=== PATIENT | male | born 1970 | race Caucasian/White ===

== ENCOUNTER 2023-08-24 20:30 | Emergency (ER) | payer OTHER ==
[~2023-08-24] VITALS: Ht 182.9 cm; Wt 97.5 kg
[2023-08-24 21:32] VITALS: BP 117/76; PULSE 88; RESP 16; TEMP 97.4; O2SAT 98
[2023-08-24 22:07] LABS: BILIRUBIN,URINE NEGATIVE (NEGATIVE); BLOOD, URINE 3+ (NEGATIVE); COLOR,URINE YELLOW (YELLOW); LEUKOCYTE ESTERASE ,URINE 1+ (NEGATIVE); NITRITE, URINE NEGATIVE (NEGATIVE); PROTEIN,URINE 3+ (NEGATIVE); UGLUCOSE 1+ (NEGATIVE); UROBILINOGEN,URINE 0.2 EU/dL (0.2 - 1)
[2023-08-24 22:08] LABS: APPEARANCE,URINE SLIGHTLY CLOUDY (CLEAR)
[2023-08-24 22:11] LABS: BACTERIA,URINE 2+ /HPF (None Seen); MUCUS,URINE None Seen /LPF (None Seen); RBC,URINE 11-20 (MOD) /HPF (0-5); SQUAMOUS EPITHELIAL CELL,UR 4-10 (MOD) /LPF (0-3 (FEW))
[2023-08-24] MEDS ORDERED: CEFP200T20 PO (22:59)
[2023-08-24] MEDS ORDERED: PYR100 PO (22:59)
[2023-08-24 23:11] VITALS: BP 117/76; PULSE 88; RESP 16; TEMP 97.4; O2SAT 98
== END 2023-08-24 23:11 | disposition home or self-care (01) ==
LOC: MED 20:30
DX: N39.0 Urinary tract infection, site not specified (principal); N40.1 Benign prostatic hyperplasia with lower urinary tract symptoms; Z79.899 Other long term (current) drug therapy
CPT/HCPCS: 81001; 87086; 99284

== ENCOUNTER 2023-10-16 13:56 | Emergency (ER) | payer OTHER ==
[~2023-10-16] VITALS: Ht 182.9 cm; Wt 96.2 kg
[~2023-10-16 13:56] MED LIST: CEFP200T20 PO; PYR100 PO
[2023-10-16 14:10] VITALS: BP 103/71; PULSE 100; RESP 20; TEMP 98.5; O2SAT 99
== END 2023-10-16 14:51 | disposition home or self-care (01) ==
LOC: MED 13:56
DX: R31.9 Hematuria, unspecified (principal); E11.9 Type 2 diabetes mellitus without complications; Z79.899 Other long term (current) drug therapy
CPT/HCPCS: 99281

== ENCOUNTER 2023-11-20 14:03 | Inpatient (IN) | payer OTHER ==
[~2023-11-20] VITALS: Ht 182.9 cm; Wt 83.9 kg
[2023-11-20 14:30] VITALS: BP 174/87; PULSE 114; RESP 18; TEMP 100.8; O2SAT 98
[2023-11-20 15:15] VITALS: O2SAT 98
[2023-11-20] MEDS: NACL 0.9% 1,000 ML IV ONE (16:00)
[2023-11-20] MEDS: ACETAMINOPHEN 325 MG TAB PO ONE (16:06)
[2023-11-20 16:07] LABS: BASOPHILS # (AUTO) 0.1 K/uL (0.00-0.22); BASOPHILS % (AUTO) 0.4 % (0.0-2.0); HEMATOCRIT 29.1 % (36-52); HEMOGLOBIN 9.4 g/dL (12.0-18.0); LYMPHOCYTES % (AUTO) 5.1 % (20.5-51.1); MEAN CORPUSCULAR HEMOGLOBIN 28 pg (27-31); MEAN CORPUSCULAR HGB CONC 32 g/dL (33-37); MEAN CORPUSCULAR VOLUME 85.5 fL (80-94); MONOCYTES # (AUTO) 0.9 K/uL (0.8-1.0); MONOCYTES % (AUTO) 4.6 % (1.7-9.3); NEUTROPHILS # (AUTO) 18.3 K/uL (1.8-7.7); NEUTROPHILS % (AUTO) 89.9 % (42.2-75.2); PLATELET COUNT (AUTO) 415 K/uL (140-450); RED CELL DISTRIBUTION WIDTH 13.6 % (11.6-13.7); WHITE BLOOD COUNT (AUTO) 20.3 K/uL (4.8-10.8)
[2023-11-20 16:25] LABS: INR 1.14 (0.8-1.2); PARTIAL THROMBOPLASTIN TIME 32.9 secs (22-35.6); PROTHROMBIN TIME 11.9 secs (10.8-13.4)
[2023-11-20] MEDS ORDERED: VANCOMYCIN 1,000 MG VIAL ONE (16:30)
[2023-11-20] MEDS ORDERED: PIPERACILLIN/TAZOBACTAM 3.375 GM VIAL IV ONE (16:31)
[2023-11-20 16:37] LABS: ALANINE AMINOTRANSFERASE 35 U/L (12-78); ALBUMIN 2.2 g/dL (3.4-5.0); ALKALINE PHOSPHATASE 519 U/L (50-136); ANION GAP 9.7 (8-16); ASPARTATE AMINOTRANSFERASE 34 U/L (15-37); BILIRUBIN,DIRECT 0.5 mg/dL (0.0-0.3); CALCIUM 8.5 mg/dL (8.5-10.1); CARBON DIOXIDE 31.5 mmol/L (21-32); CREATININE 1.2 mg/dL (0.6-1.3); POTASSIUM 4.2 mmol/L (3.5-5.1); TOTAL BILIRUBIN 1.1 mg/dL (0.0-1.0); TOTAL PROTEIN, SERUM 7.7 g/dL (6.4-8.2)
[2023-11-20] MEDS: NACL 0.9% 1,500 ML IV ONE (16:43)
[2023-11-20] MEDS: PIPERACILLIN/TAZOBACTAM 3.375 GM in DEXTROSE 5% 50 ML IV ONE (16:44)
[2023-11-20 16:45] LABS: LACTIC ACID 1.4 mmol/L (0.4-2.0)
[2023-11-20 16:53] LABS: APPEARANCE,URINE SLIGHTLY HAZY (CLEAR); BILIRUBIN,URINE NEGATIVE (NEGATIVE); BLOOD, URINE 3+ (NEGATIVE); COLOR,URINE YELLOW (YELLOW); LEUKOCYTE ESTERASE ,URINE TRACE (NEGATIVE); NITRITE, URINE NEGATIVE (NEGATIVE); PROTEIN,URINE 2+ (NEGATIVE); UGLUCOSE 3+ (NEGATIVE)
[2023-11-20 16:54] LABS: RBC,URINE 20-50 /HPF (0-5)
[2023-11-20 16:55] LABS: BACTERIA,URINE 1+ /HPF (None Seen); MUCUS,URINE None Seen /LPF (None Seen); SQUAMOUS EPITHELIAL CELL,UR 0-3 (FEW) /LPF (0-3 (FEW)); WBC,URINE 0-5 /HPF (0-5)
[2023-11-20] MEDS ORDERED: DEXTROSE 50% 50 ML SYR IVP PRN (17:20)
[2023-11-20] MEDS ORDERED: HYDROcodone/APAP 5/325 MG 1 TAB TAB PO PRN (17:20)
[2023-11-20] MEDS ORDERED: VANCOMYCIN PER PHARMACY MC PRN (17:20)
[2023-11-20] MEDS ORDERED: ONDANSETRON 4 MG/2 ML VIAL IVP PRN (17:20)
[2023-11-20] MEDS ORDERED: MORPHINE SULFATE 4 MG/ML SYR IVP PRN (17:20)
[2023-11-20] MEDS ORDERED: ACETAMINOPHEN 325 MG TAB PO PRN (17:20)
[2023-11-20] MEDS: VANCOMYCIN 1,000 MG in DEXTROSE 5% 250 ML IV ONE (17:21)
[2023-11-20] MEDS: NACL 0.9% 1,000 ML IV SCH (17:44)
[2023-11-20 18:41] VITALS: O2SAT 100
[2023-11-20] MEDS: BLOOD GLUCOSE MONITORING 1 DEV DEV FS SCH (21:00)
[2023-11-20] MEDS: PIPERACILLIN/TAZOBACTAM 3.375 GM in DEXTROSE 5% 50 ML IV SCH (21:00)
[2023-11-20 21:30] VITALS: BP 142/76; PULSE 94; RESP 18; TEMP 97.6; O2SAT 97
[2023-11-20] MEDS: PIPERACILLIN/TAZOBACTAM 3.375 GM VIAL IV ONE (21:56)
[2023-11-20] MEDS: INSULIN LISPRO SLIDING SCALE 100 UNITS/ML VIAL SUBQ PRN (22:17)
[2023-11-21] VITALS: BP 138/74; PULSE 72; RESP 16; TEMP 97.2; O2SAT 96
[2023-11-21 04:00] VITALS: BP 134/68; PULSE 86; RESP 18; TEMP 98.2; O2SAT 99
[2023-11-21] MEDS: VANCOMYCIN 1,000 MG VIAL ONE (04:36)
[2023-11-21] MEDS: VANCOMYCIN 1,000 MG in DEXTROSE 5% 250 ML IV ONE (04:37)
[2023-11-21] MEDS: PIPERACILLIN/TAZOBACTAM 3.375 GM VIAL IV ONE (05:29)
[2023-11-21 06:45] LABS: BASOPHILS # (AUTO) 0.1 K/uL (0.00-0.22); BASOPHILS % (AUTO) 0.3 % (0.0-2.0); EOSINOPHILS % (AUTO) 0.1 % (0.0-4.0); HEMATOCRIT 24.5 % (36-52); HEMOGLOBIN 8.1 g/dL (12.0-18.0); LYMPHOCYTES # (AUTO) 1.3 K/uL (2.0-11.5); LYMPHOCYTES % (AUTO) 7.1 % (20.5-51.1); MEAN CORPUSCULAR HEMOGLOBIN 28 pg (27-31); MEAN CORPUSCULAR HGB CONC 33 g/dL (33-37); MEAN CORPUSCULAR VOLUME 85.6 fL (80-94); MONOCYTES % (AUTO) 5.6 % (1.7-9.3); NEUTROPHILS # (AUTO) 16.3 K/uL (1.8-7.7); NEUTROPHILS % (AUTO) 86.9 % (42.2-75.2); PLATELET COUNT (AUTO) 333 K/uL (140-450); RED BLOOD CELL COUNT(AUTO) 2.86 MIL/uL (4.20-6.10); RED CELL DISTRIBUTION WIDTH 13.3 % (11.6-13.7); WHITE BLOOD COUNT (AUTO) 18.8 K/uL (4.8-10.8)
[2023-11-21 07:03] LABS: ALBUMIN 1.7 g/dL (3.4-5.0); ANION GAP 9.7 (8-16); CALCIUM 7.9 mg/dL (8.5-10.1); CARBON DIOXIDE 29.1 mmol/L (21-32); CREATININE 0.9 mg/dL (0.6-1.3); POTASSIUM 3.8 mmol/L (3.5-5.1); TOTAL BILIRUBIN 1.1 mg/dL (0.0-1.0); TOTAL PROTEIN, SERUM 6.3 g/dL (6.4-8.2)
[2023-11-21 08:00] VITALS: BP 130/60; PULSE 86; PULSE 89; RESP 18; TEMP 98; O2SAT 98
[2023-11-21] MEDS: ENOXAPARIN 40 MG/0.4 ML SYR SUBQ SCH (08:13)
[2023-11-21] MEDS: VANCOMYCIN 1,000 MG in NACL 0.9% 250 ML IV SCH (14:58)
[2023-11-21] MEDS: MAG SULF 2000 MG/WATER PREMIX 50 ML IV SCH (19:34)
[2023-11-21 19:50] VITALS: BP 132/69; PULSE 90; RESP 18; TEMP 99.5; O2SAT 96
[2023-11-21 19:56] VITALS: PULSE 90; RESP 18; O2SAT 96
[2023-11-21] MEDS: MEDS-TO-BEDS MC SCH (21:15)
[2023-11-22 04:00] VITALS: BP 155/87; PULSE 89; RESP 18; TEMP 98.2; O2SAT 98
[2023-11-22] MEDS: BUPIVACAINE-MPF 0.25% 30 ML VIAL INJ ONE (07:18)
[2023-11-22] MEDS: LIDOCAINE 1% 500 MG/50 ML VIAL ONE (07:18)
[2023-11-22] MEDS: HYDROGEN PEROXIDE 3% 240 ML BTL TP ONE (07:18)
[2023-11-22] MEDS: fentaNYL citrate 0.05 MG/ML VIAL ONE (07:27)
[2023-11-22] MEDS: LIDOCAINE MPF 2% 100 MG/5 ML VIAL INJ ONE ×2 (07:28)
[2023-11-22] MEDS: MIDAZOLAM 2 MG/2 ML VIAL ONE (07:28)
[2023-11-22] MEDS: PROPOFOL 200 MG/20 ML VIAL IV ONE (07:28)
[2023-11-22] MEDS ORDERED: SEVOFLURANE 250 ML BTL INH ONE (07:50)
[2023-11-22 08:00] VITALS: PULSE 90; RESP 18; O2SAT 96
[2023-11-22] MEDS: ePHEDrine 50 MG/ML VIAL ONE ×2 (08:48)
[2023-11-22] MEDS: ONDANSETRON 4 MG/2 ML VIAL ONE (08:48)
[2023-11-22] MEDS: VANCOMYCIN 1,000 MG in NACL 0.9% 250 ML IV SCH (10:29)
[2023-11-22 12:00] VITALS: BP 136/70; PULSE 88; RESP 18; TEMP 98.6; O2SAT 97
[2023-11-22] MEDS: PIPERACILLIN/TAZOBACTAM 3.375 GM in DEXTROSE 5% 50 ML IV SCH (12:41)
[2023-11-22 20:00] VITALS: BP 128/72; PULSE 92; RESP 18; TEMP 98.3; O2SAT 96
[2023-11-23 04:00] VITALS: BP 141/74; PULSE 77; RESP 18; TEMP 98.1; O2SAT 97
[2023-11-23 08:00] VITALS: BP 158/86; PULSE 80; PULSE 92; RESP 18; TEMP 97.4; O2SAT 100; O2SAT 96
[2023-11-23 14:42] LABS: BASOPHILS # (AUTO) 0.1 K/uL (0.00-0.22); BASOPHILS % (AUTO) 0.5 % (0.0-2.0); EOSINOPHILS # (AUTO) 0.1 K/uL (0-0.4); EOSINOPHILS % (AUTO) 0.6 % (0.0-4.0); HEMATOCRIT 25.1 % (36-52); HEMOGLOBIN 8.3 g/dL (12.0-18.0); LYMPHOCYTES # (AUTO) 1.3 K/uL (2.0-11.5); LYMPHOCYTES % (AUTO) 8.6 % (20.5-51.1); MEAN CORPUSCULAR HEMOGLOBIN 28 pg (27-31); MEAN CORPUSCULAR HGB CONC 33 g/dL (33-37); MEAN CORPUSCULAR VOLUME 84.4 fL (80-94); MONOCYTES # (AUTO) 0.8 K/uL (0.8-1.0); MONOCYTES % (AUTO) 5.5 % (1.7-9.3); NEUTROPHILS # (AUTO) 12.6 K/uL (1.8-7.7); NEUTROPHILS % (AUTO) 84.8 % (42.2-75.2); PLATELET COUNT (AUTO) 393 K/uL (140-450); RED BLOOD CELL COUNT(AUTO) 2.97 MIL/uL (4.20-6.10); RED CELL DISTRIBUTION WIDTH 13.6 % (11.6-13.7); WHITE BLOOD COUNT (AUTO) 14.8 K/uL (4.8-10.8)
[2023-11-23 16:00] VITALS: BP 156/88; PULSE 83; RESP 18; TEMP 98.1; O2SAT 98
[2023-11-23 20:00] VITALS: PULSE 85; RESP 18; O2SAT 96
[2023-11-24 04:00] VITALS: BP 140/76; PULSE 66; RESP 18; TEMP 98; O2SAT 100
[2023-11-24 08:00] VITALS: PULSE 84; RESP 18; O2SAT 98
[2023-11-24 10:00] VITALS: BP 136/72; PULSE 66; RESP 18; TEMP 98.3; O2SAT 99
[2023-11-24] MEDS: HYDROGEN PEROXIDE 3% 240 ML BTL TP ONE (12:29)
[2023-11-24] MEDS: BUPIVACAINE-MPF 0.25% 30 ML VIAL INJ ONE (14:20)
[2023-11-24] MEDS: LIDOCAINE 1% 500 MG/50 ML VIAL ONE (14:20)
[2023-11-24] MEDS ORDERED: HYDROmorphone 1 MG/ML AMP IVP PRN (14:35)
[2023-11-24] MEDS ORDERED: diphenhydrAMINE 50 MG/ML VIAL IVP PRN (14:35)
[2023-11-24] MEDS ORDERED: MEPERIDINE 25 MG/ML SYR IVP PRN (14:35)
[2023-11-24] MEDS ORDERED: ONDANSETRON 4 MG/2 ML VIAL IVP PRN (14:35)
[2023-11-24] MEDS: NACL 0.9% 1,000 ML IV SCH ×2 (14:35)
[2023-11-24 16:00] VITALS: BP 133/92; PULSE 66; RESP 18; TEMP 98.2; O2SAT 96
[2023-11-24 20:00] VITALS: BP 147/89; PULSE 88; PULSE 94; RESP 20; TEMP 97; O2SAT 96; O2SAT 98
[2023-11-25 04:00] VITALS: BP_SYST 145; BP_SYST 147; BP_DIAS 80; BP_DIAS 89; PULSE 86; PULSE 94; RESP 18; RESP 20; TEMP 97; TEMP 97.5; O2SAT 98
[2023-11-25 08:00] VITALS: PULSE 80; RESP 18; O2SAT 96
[2023-11-25 20:00] VITALS: BP 164/88; PULSE 85; RESP 21; TEMP 97.9; O2SAT 100
[2023-11-26 04:00] VITALS: BP 162/90; PULSE 80; RESP 19; TEMP 98.2; O2SAT 95
[2023-11-26 08:00] VITALS: BP 157/83; PULSE 80; RESP 18; TEMP 97.4; O2SAT 100; O2SAT 95
[2023-11-26 09:16] LABS: BASOPHILS # (AUTO) 0.1 K/uL (0.00-0.22); BASOPHILS % (AUTO) 0.9 % (0.0-2.0); EOSINOPHILS # (AUTO) 0.2 K/uL (0-0.4); HEMATOCRIT 30.9 % (36-52); HEMOGLOBIN 9.8 g/dL (12.0-18.0); LYMPHOCYTES # (AUTO) 1.7 K/uL (2.0-11.5); LYMPHOCYTES % (AUTO) 14.6 % (20.5-51.1); MEAN CORPUSCULAR HEMOGLOBIN 27 pg (27-31); MEAN CORPUSCULAR HGB CONC 32 g/dL (33-37); MEAN CORPUSCULAR VOLUME 85.9 fL (80-94); MONOCYTES # (AUTO) 0.6 K/uL (0.8-1.0); NEUTROPHILS # (AUTO) 8.8 K/uL (1.8-7.7); NEUTROPHILS % (AUTO) 77.5 % (42.2-75.2); PLATELET COUNT (AUTO) 611 K/uL (140-450); WHITE BLOOD COUNT (AUTO) 11.4 K/uL (4.8-10.8)
[2023-11-26 10:35] LABS: ANION GAP 13.8 (8-16); CARBON DIOXIDE 28.2 mmol/L (21-32)
[2023-11-26 11:11] LABS: ALBUMIN 2.1 g/dL (3.4-5.0); CALCIUM 8.4 mg/dL (8.5-10.1); TOTAL BILIRUBIN 0.4 mg/dL (0.0-1.0); TOTAL PROTEIN, SERUM 7.7 g/dL (6.4-8.2)
[2023-11-26 20:00] VITALS: BP 136/67; PULSE 79; RESP 19; TEMP 97.9; O2SAT 97
[2023-11-27 04:00] VITALS: BP 124/76; PULSE 74; RESP 18; TEMP 97.5; O2SAT 98
[2023-11-27 08:00] VITALS: BP 161/90; PULSE 76; RESP 18; TEMP 97.4; O2SAT 100
[2023-11-27] MEDS ORDERED: AMOX1TAB15 PO (09:44)
[2023-11-27] MEDS ORDERED: ACET500T99 PO (09:44)
[2023-11-27] MEDS ORDERED: ACET-9525 PO (09:44)
[2023-11-27 15:27] LABS: BASOPHILS # (AUTO) 0.1 K/uL (0.00-0.22); BASOPHILS % (AUTO) 1.2 % (0.0-2.0); EOSINOPHILS # (AUTO) 0.2 K/uL (0-0.4); EOSINOPHILS % (AUTO) 1.6 % (0.0-4.0); HEMATOCRIT 29.5 % (36-52); HEMOGLOBIN 9.5 g/dL (12.0-18.0); LYMPHOCYTES # (AUTO) 1.7 K/uL (2.0-11.5); LYMPHOCYTES % (AUTO) 17.2 % (20.5-51.1); MEAN CORPUSCULAR HEMOGLOBIN 28 pg (27-31); MEAN CORPUSCULAR HGB CONC 32 g/dL (33-37); MEAN CORPUSCULAR VOLUME 85.5 fL (80-94); MONOCYTES # (AUTO) 0.5 K/uL (0.8-1.0); MONOCYTES % (AUTO) 5.1 % (1.7-9.3); NEUTROPHILS # (AUTO) 7.6 K/uL (1.8-7.7); NEUTROPHILS % (AUTO) 74.9 % (42.2-75.2); PLATELET COUNT (AUTO) 603 K/uL (140-450); RED BLOOD CELL COUNT(AUTO) 3.45 MIL/uL (4.20-6.10); RED CELL DISTRIBUTION WIDTH 13.9 % (11.6-13.7); WHITE BLOOD COUNT (AUTO) 10.2 K/uL (4.8-10.8)
[2023-11-27 15:58] LABS: ANION GAP 8.4 (8-16); CALCIUM 8.4 mg/dL (8.5-10.1); CARBON DIOXIDE 30.3 mmol/L (21-32); CREATININE 0.9 mg/dL (0.6-1.3); POTASSIUM 3.7 mmol/L (3.5-5.1); TOTAL BILIRUBIN 0.3 mg/dL (0.0-1.0); TOTAL PROTEIN, SERUM 7.3 g/dL (6.4-8.2)
[2023-11-27 16:00] VITALS: BP 163/90; PULSE 77; RESP 18; TEMP 97.8; O2SAT 100
[2023-11-27 20:00] VITALS: BP 150/85; PULSE 83; RESP 18; TEMP 98.6; O2SAT 100
[2023-11-27 20:08] VITALS: PULSE 83; RESP 18; O2SAT 100
[2023-11-27] MEDS: PIPERACILLIN/TAZOBACTAM 3.375 GM in DEXTROSE 5% 50 ML IV SCH (21:54)
[2023-11-28 04:00] VITALS: BP 163/94; PULSE 76; RESP 19; TEMP 97; O2SAT 99
[2023-11-28 06:42] LABS: BASOPHILS # (AUTO) 0.1 K/uL (0.00-0.22); BASOPHILS % (AUTO) 0.6 % (0.0-2.0); EOSINOPHILS # (AUTO) 0.2 K/uL (0-0.4); EOSINOPHILS % (AUTO) 2.1 % (0.0-4.0); HEMATOCRIT 25.6 % (36-52); HEMOGLOBIN 8.6 g/dL (12.0-18.0); LYMPHOCYTES # (AUTO) 2.2 K/uL (2.0-11.5); LYMPHOCYTES % (AUTO) 20.4 % (20.5-51.1); MEAN CORPUSCULAR HEMOGLOBIN 28 pg (27-31); MEAN CORPUSCULAR HGB CONC 33 g/dL (33-37); MEAN CORPUSCULAR VOLUME 85.1 fL (80-94); MONOCYTES # (AUTO) 0.6 K/uL (0.8-1.0); MONOCYTES % (AUTO) 5.4 % (1.7-9.3); NEUTROPHILS # (AUTO) 7.8 K/uL (1.8-7.7); NEUTROPHILS % (AUTO) 71.5 % (42.2-75.2); PLATELET COUNT (AUTO) 581 K/uL (140-450); RED BLOOD CELL COUNT(AUTO) 3.01 MIL/uL (4.20-6.10); RED CELL DISTRIBUTION WIDTH 13.7 % (11.6-13.7)
[2023-11-28 08:00] VITALS: PULSE 78; RESP 18; O2SAT 100
[2023-11-28 08:30] LABS: ANION GAP 8.6 (8-16); CALCIUM 8.3 mg/dL (8.5-10.1); CARBON DIOXIDE 30.2 mmol/L (21-32); POTASSIUM 3.8 mmol/L (3.5-5.1)
[2023-11-28 08:35] LABS: ALBUMIN 1.9 g/dL (3.4-5.0); TOTAL BILIRUBIN 0.2 mg/dL (0.0-1.0); TOTAL PROTEIN, SERUM 6.8 g/dL (6.4-8.2)
[2023-11-28] MEDS: hydrALAZINE 25 MG TAB PO SCH (09:47)
[2023-11-28 12:28] VITALS: BP 148/98; PULSE 77; RESP 18; TEMP 98.6
[2023-11-28] MEDS: fentaNYL citrate 0.05 MG/ML VIAL ONE (14:20)
[2023-11-28] MEDS: METOCLOPRAMIDE 10 MG/2 ML INJ VIAL ONE (14:21)
[2023-11-28] MEDS: ONDANSETRON 4 MG/2 ML VIAL ONE (14:21)
[2023-11-28] MEDS: KETOROLAC 30 MG/ML VIAL ONE (14:21)
[2023-11-28] MEDS: PROPOFOL 200 MG/20 ML VIAL IV ONE (14:21)
[2023-11-28] MEDS: MIDAZOLAM 2 MG/2 ML VIAL ONE (14:21)
[2023-11-28] MEDS: GLYCOPYRROLATE 0.2 MG/ML VIAL ONE ×2 (14:22)
[2023-11-28] MEDS: ePHEDrine 50 MG/ML VIAL ONE (14:22)
[2023-11-28] MEDS ORDERED: ERTA1VIA2 IVP (16:07)
== END 2023-11-28 17:05 | disposition home or self-care (01) | DRG 314 ==
LOC: MED 14:03 → MTU 17:28
PROVIDERS: ADMIT Hospitalist; ATTEND Hospitalist
PROC: 0Y6T0Z1 Detachment at Right 3rd Toe, High, Open Approach (ICD-10-PCS; principal; 2023-11-22 07:30)
PROC: 0HXMXZZ Transfer Right Foot Skin, External Approach (ICD-10-PCS; 2023-11-24)
PROC: 0JBQ0ZZ Excision of Right Foot Subcutaneous Tissue and Fascia, Open Approach (ICD-10-PCS; 2023-11-24)
PROC: 05HY33Z Insertion of Infusion Device into Upper Vein, Percutaneous Approach (ICD-10-PCS; 2023-11-27)
PROC: B54MZZA Ultrasonography of Right Upper Extremity Veins, Guidance (ICD-10-PCS; 2023-11-27)
DX: E11.52 Type 2 diabetes mellitus with diabetic peripheral angiopathy with gangrene (principal); A48.0 Gas gangrene; E11.621 Type 2 diabetes mellitus with foot ulcer; E11.69 Type 2 diabetes mellitus with other specified complication; E44.0 Moderate protein-calorie malnutrition; R71.0 Precipitous drop in hematocrit; M86.8X7 Other osteomyelitis, ankle and foot; L97.519 Non-pressure chronic ulcer of other part of right foot with unspecified severity; L03.031 Cellulitis of right toe; D72.829 Elevated white blood cell count, unspecified; Z68.25 Body mass index [BMI] 25.0-25.9, adult
CPT/HCPCS: 36415; 71045; 73620; 73630; 80048; 80053; 80076; 80202; 81001; 82948; 83605; 83735; 84484; 85025; 85610; 85730; 87040; 87070; 87075; 87081; 87086; 87186; 87205; 88305; 88311; 93005; 96365; 96367; 99291; C1762; J1650; J1815; J1885; J2003; J2250; J2405; J2543; J2704; J2765; J3010; J3370; J3475; J3490; J7030; J7060; Q0092